=== PATIENT | male | born 1935 | race Caucasian/White ===

== ENCOUNTER 2017-07-28 06:39 | Day surgery (SDC) | payer MEDICARE, BC ==
[2017-07-28] MEDS ORDERED: LIDOCAINE 4% SOLUTION 50 ML BTL (08:41)
[2017-07-28] MEDS ORDERED: MIDAZOLAM 1 MG/ML 2 ML INJ ×2 (09:44)
[2017-07-28] MEDS ORDERED: FENTAnyl 50 MCG/ML VIAL (09:45)
== END 2017-07-28 10:31 | disposition home or self-care (01) ==
LOC: GIL 06:39
DX: Z12.11 Encounter for screening for malignant neoplasm of colon (principal); C16.0 Malignant neoplasm of cardia
CPT/HCPCS: 43239; 88305; 88312; 88313

== ENCOUNTER 2017-08-04 17:36 | Observation (INO) | payer MEDICARE, BC ==
[2017-08-04 22:49] LABS: ADD MAN DIFF? NO
[2017-08-04 22:51] LABS: WHITE BLOOD COUNT 7.8 10^3/ul (4.8-10.8)
[2017-08-04 22:51] LABS: BASOPHILS % 0.4 % (0.0-2.0); EOSINOPHILS # 0.2 10^3/ul (0.0-0.5); EOSINOPHILS % 2.6 % (0.0-7.0); HEMATOCRIT 37.7 % (42.0-52.0); HEMOGLOBIN 12.4 g/dl (14.0-18.0); LYMPHOCYTES # 2.3 10^3/ul (0.8-2.9); LYMPHOCYTES % 29.3 % (15.0-51.0); MEAN CORPUSCULAR HEMOGLOBIN 29.9 pg (29.0-33.0); MEAN CORPUSCULAR HGB CONC 32.9 g/dl (32.0-37.0); MEAN CORPUSCULAR VOLUME 90.8 fl (82.0-101.0); MEAN PLATELET VOLUME 8.8 fl (7.4-10.4); MONOCYTE # 0.6 10^3/ul (0.3-0.9); MONOCYTES % 7.4 % (0.0-11.0); NEUTROPHIL # 4.7 10^3/ul (1.6-7.5); PLATELET COUNT 305 10^3/UL (140-415); RED BLOOD COUNT 4.15 10^6/ul (4.70-6.10)
[2017-08-04 23:01] LABS: ADD UMIC NO; UR ASCORBIC ACID 20 mg/dL (NEGATIVE); UR BILIRUBIN (Dip) NEGATIVE (NEGATIVE); UR BLOOD (Dip) NEGATIVE (NEGATIVE); UR CLARITY SLIGHTLY CLOUDY (CLEAR); UR COLOR YELLOW (YELLOW); UR GLUCOSE (Dip) NEGATIVE (NEGATIVE); UR KETONES (Dip) NEGATIVE (NEGATIVE); UR LEUKOCYTE ESTERASE (Dip) NEGATIVE Leu/ul (NEGATIVE); UR MUCUS MANY /HPF (NONE SEEN); UR NITRITE (Dip) NEGATIVE (NEGATIVE); UR RBC 0 /HPF (0-5); UR SPECIFIC GRAVITY (Dip) 1.025 (1.003-1.030); UR SQUAMOUS EPITHELIAL CELL FEW /HPF (FEW); UR TOTAL PROTEIN (Dip) NEGATIVE (NEGATIVE); UR UROBILINOGEN (Dip) 1+ mg/dL (NEGATIVE); UR WBC 1 /HPF (0-5)
[2017-08-04 23:14] LABS: LACTIC ACID 1.1 mmol/L (0.5-2.0)
[2017-08-04 23:14] LABS: ALANINE AMINOTRANSFERASE 19 IU/L (13-69); ALBUMIN/GLOBULIN RATIO 1.25; ALKALINE PHOSPHATASE 69 IU/L (42-121); ANION GAP 15 (8-16); ASPARTATE AMINO TRANSFERASE 16 IU/L (15-46); BILIRUBIN,INDIRECT 0.3 mg/dl (0-1.1); BILIRUBIN,TOTAL 0.3 mg/dl (0.2-1.3); BLOOD UREA NITROGEN 15 mg/dl (7-20); CALCIUM 9.3 mg/dl (8.4-10.2); CARBON DIOXIDE 30 mmol/L (21-31); CHLORIDE 101 mmol/L (97-110); CREATININE 0.76 mg/dl (0.61-1.24); GLUCOSE 128 mg/dl (70-220); LIPASE 66 U/L (23-300); POTASSIUM 4.3 mmol/L (3.5-5.1); SODIUM 142 mmol/L (135-144); TOTAL PROTEIN 7.2 g/dl (6.1-8.1)
[2017-08-04] MEDS: SOD CHLORIDE 0.9% 1,000 ML IV (23:26)
[2017-08-04] MEDS: ONDANSETRON 4 MG INJ IV (23:26)
[2017-08-05] MEDS ORDERED: ALBUTEROL/IPRATROPIUM (NEB) 3 ML AMP HHN (02:00)
[2017-08-05] MEDS ORDERED: morphine 2 MG INJ IV (02:00)
[2017-08-05] MEDS ORDERED: ONDANSETRON 4 MG INJ IV (02:00)
[2017-08-05] MEDS ORDERED: NACL 0.9% 3 ML SYG IV (02:00)
[2017-08-05] MEDS: DEXTROSE 5%-0.45% NACL 1,000 ML IV ×2 (02:33→16:03)
[2017-08-05 06:13] LABS: ADD MAN DIFF? NO
[2017-08-05 06:21] LABS: WHITE BLOOD COUNT 5.2 10^3/ul (4.8-10.8)
[2017-08-05 06:21] LABS: BASOPHILS % 0.4 % (0.0-2.0); EOSINOPHILS # 0.2 10^3/ul (0.0-0.5); EOSINOPHILS % 4.1 % (0.0-7.0); HEMATOCRIT 26.4 % (42.0-52.0); HEMOGLOBIN 8.2 g/dl (14.0-18.0); LYMPHOCYTES # 1.6 10^3/ul (0.8-2.9); MEAN CORPUSCULAR HEMOGLOBIN 30.7 pg (29.0-33.0); MEAN CORPUSCULAR HGB CONC 31.1 g/dl (32.0-37.0); MEAN CORPUSCULAR VOLUME 98.9 fl (82.0-101.0); MEAN PLATELET VOLUME 9.6 fl (7.4-10.4); MONOCYTE # 0.4 10^3/ul (0.3-0.9); MONOCYTES % 8.3 % (0.0-11.0); NEUTROPHIL # 2.9 10^3/ul (1.6-7.5); NEUTROPHILS % 56.8 % (39.0-77.0); PLATELET COUNT 214 10^3/UL (140-415); RED BLOOD COUNT 2.67 10^6/ul (4.70-6.10); RED CELL DISTRIBUTION WIDTH 14.1 % (11.5-14.5)
[2017-08-05 08:39] LABS: ALANINE AMINOTRANSFERASE 19 IU/L (13-69); ALBUMIN 2.9 g/dl (3.3-4.9); ALBUMIN/GLOBULIN RATIO 1.11; ALKALINE PHOSPHATASE 50 IU/L (42-121); ANION GAP 11 (8-16); ASPARTATE AMINO TRANSFERASE 14 IU/L (15-46); BILIRUBIN,INDIRECT 0.3 mg/dl (0-1.1); BILIRUBIN,TOTAL 0.3 mg/dl (0.2-1.3); BLOOD UREA NITROGEN 13 mg/dl (7-20); CALCIUM 8.4 mg/dl (8.4-10.2); CARBON DIOXIDE 28 mmol/L (21-31); CHLORIDE 105 mmol/L (97-110); GLUCOSE 95 mg/dl (70-220); PHOSPHORUS 3.4 mg/dl (2.5-4.9); SODIUM 140 mmol/L (135-144); TOTAL PROTEIN 5.5 g/dl (6.1-8.1)
[2017-08-05] MEDS: FAMOTIDINE 20 MG INJ IV ×2 (09:21→21:55)
[2017-08-05] MEDS: SOD CHLORIDE 0.9% 100 ML (10:07)
[2017-08-05] MEDS: IOHEXOL 300MG/ML 150 ML BTL (10:07)
[2017-08-06] MEDS: DEXTROSE 5%-0.45% NACL 1,000 ML IV (05:41)
[2017-08-06 06:33] LABS: ADD MAN DIFF? NO
[2017-08-06 06:45] LABS: RETICULOCYTE RBC 3.61; WHITE BLOOD COUNT 6.4 10^3/ul (4.8-10.8)
[2017-08-06 06:45] LABS: BASOPHILS % 0.5 % (0.0-2.0); EOSINOPHILS # 0.3 10^3/ul (0.0-0.5); EOSINOPHILS % 3.9 % (0.0-7.0); HEMOGLOBIN 11.2 g/dl (14.0-18.0); LYMPHOCYTES # 1.7 10^3/ul (0.8-2.9); LYMPHOCYTES % 25.9 % (15.0-51.0); MEAN CORPUSCULAR HEMOGLOBIN 30.4 pg (29.0-33.0); MEAN CORPUSCULAR HGB CONC 33.9 g/dl (32.0-37.0); MEAN CORPUSCULAR VOLUME 89.4 fl (82.0-101.0); MEAN PLATELET VOLUME 9.2 fl (7.4-10.4); MONOCYTE # 0.5 10^3/ul (0.3-0.9); MONOCYTES % 8.2 % (0.0-11.0); NEUTROPHIL # 3.9 10^3/ul (1.6-7.5); NEUTROPHILS % 61.2 % (39.0-77.0); PLATELET COUNT 273 10^3/UL (140-415); RED BLOOD COUNT 3.69 10^6/ul (4.70-6.10); RED CELL DISTRIBUTION WIDTH 13.7 % (11.5-14.5); RETICULOCYTE COUNT # 0.036 X10^6 (0.020-0.110)
[2017-08-06 06:58] LABS: ANION GAP 14 (8-16); BLOOD UREA NITROGEN 8 mg/dl (7-20); CALCIUM 8.7 mg/dl (8.4-10.2); CARBON DIOXIDE 27 mmol/L (21-31); CHLORIDE 103 mmol/L (97-110); CREATININE 0.72 mg/dl (0.61-1.24); GLUCOSE 98 mg/dl (70-220); MAGNESIUM 1.9 mg/dl (1.7-2.5); PHOSPHORUS 3.8 mg/dl (2.5-4.9); POTASSIUM 3.8 mmol/L (3.5-5.1); SODIUM 140 mmol/L (135-144)
[2017-08-06 07:18] LABS: IRON 45 ug/dl (35-150)
[2017-08-06 07:19] LABS: LACTATE DEHYDROGENASE 388 IU/L (313-618)
[2017-08-06 07:19] LABS: URIC ACID 4.5 mg/dl (3.1-7.9)
[2017-08-06 07:27] LABS: % IRON SATURATION 17 % SAT (22-52); TOTAL IRON BINDING CAPACITY 259 ug/dl (241-421)
[2017-08-06 07:28] LABS: FERRITIN 81.6 ng/ml (11.1-264.0)
[2017-08-06 07:59] LABS: FOLATE 11.1 ng/ml (2.8-20.0)
[2017-08-06 08:09] LABS: ERYTHROCYTE SEDIMENTATION RATE 16 mm/Hr (0-20)
[2017-08-06] MEDS: FAMOTIDINE 20 MG INJ IV (08:38)
== END 2017-08-06 17:45 | disposition left against medical advice (07) ==
LOC: E/R 17:36 → PP2 08-05 00:05
DX: C16.9 Malignant neoplasm of stomach, unspecified (principal); R13.10 Dysphagia, unspecified; J44.9 Chronic obstructive pulmonary disease, unspecified; R63.4 Abnormal weight loss; Z68.1 Body mass index [BMI] 19.9 or less, adult; D63.8 Anemia in other chronic diseases classified elsewhere; N40.0 Benign prostatic hyperplasia without lower urinary tract symptoms; L98.9 Disorder of the skin and subcutaneous tissue, unspecified; H91.90 Unspecified hearing loss, unspecified ear; R42 Dizziness and giddiness; R07.9 Chest pain, unspecified; E86.0 Dehydration; M62.50 Muscle wasting and atrophy, not elsewhere classified, unspecified site; F17.200 Nicotine dependence, unspecified, uncomplicated
CPT/HCPCS: 36415; 80048; 80053; 81001; 81003; 82306; 82378; 82607; 82728; 82746; 83540; 83605; 83615; 83690; 83735; 84100; 84443; 84560; 85025; 85045; 85651; 87081; 96374; 99285-25; G0378

== ENCOUNTER 2017-08-07 00:40 | Inpatient (IN) | payer MEDICARE, BC ==
[2017-08-07] MEDS: ALBUTEROL/IPRATROPIUM (NEB) 3 ML AMP HHN ×4 (01:27→23:37)
[2017-08-07] MEDS: DEXTROSE 5%-0.9% NACL 1,000 ML IV ×2 (02:20→19:51)
[2017-08-07 02:23] LABS: ADD MAN DIFF? NO
[2017-08-07 02:24] LABS: WHITE BLOOD COUNT 6.3 10^3/ul (4.8-10.8)
[2017-08-07 02:24] LABS: BASOPHILS % 0.5 % (0.0-2.0); EOSINOPHILS # 0.1 10^3/ul (0.0-0.5); EOSINOPHILS % 1.1 % (0.0-7.0); HEMATOCRIT 35.1 % (42.0-52.0); HEMOGLOBIN 11.6 g/dl (14.0-18.0); LYMPHOCYTES # 1.1 10^3/ul (0.8-2.9); LYMPHOCYTES % 17.6 % (15.0-51.0); MEAN CORPUSCULAR HEMOGLOBIN 29.7 pg (29.0-33.0); MEAN PLATELET VOLUME 9.1 fl (7.4-10.4); MONOCYTE # 0.5 10^3/ul (0.3-0.9); MONOCYTES % 7.3 % (0.0-11.0); NEUTROPHIL # 4.6 10^3/ul (1.6-7.5); NEUTROPHILS % 73.2 % (39.0-77.0); PLATELET COUNT 300 10^3/UL (140-415); RED CELL DISTRIBUTION WIDTH 13.5 % (11.5-14.5)
[2017-08-07 02:45] LABS: ALANINE AMINOTRANSFERASE 12 IU/L (13-69); ALBUMIN 3.6 g/dl (3.3-4.9); ALKALINE PHOSPHATASE 56 IU/L (42-121); ANION GAP 16 (8-16); ASPARTATE AMINO TRANSFERASE 27 IU/L (15-46); BILIRUBIN,INDIRECT 0.6 mg/dl (0-1.1); BILIRUBIN,TOTAL 0.6 mg/dl (0.2-1.3); BLOOD UREA NITROGEN 9 mg/dl (7-20); CALCIUM 8.9 mg/dl (8.4-10.2); CARBON DIOXIDE 26 mmol/L (21-31); CHLORIDE 107 mmol/L (97-110); CREATININE 0.71 mg/dl (0.61-1.24); GLUCOSE 88 mg/dl (70-220); LIPASE 39 U/L (23-300); POTASSIUM 4.6 mmol/L (3.5-5.1); SODIUM 144 mmol/L (135-144); TOTAL PROTEIN 7.2 g/dl (6.1-8.1)
[2017-08-07] MEDS: PANTOPRAZOLE 40 MG INJ IV (05:50)
[2017-08-07] MEDS: LIDOCAINE 1% (MPF) 5 ML VIAL SC (16:10)
[2017-08-07] MEDS: TPN 1,000 ML IV (20:22)
[2017-08-07] MEDS: ACCU-CHEK XX (21:00)
[2017-08-08] MEDS: ACCU-CHEK XX ×6 (01:00→21:03)
[2017-08-08] MEDS: PANTOPRAZOLE 40 MG INJ IV (05:22)
[2017-08-08 06:38] LABS: ANION GAP 12 (8-16); BLOOD UREA NITROGEN 9 mg/dl (7-20); CALCIUM 8.4 mg/dl (8.4-10.2); CARBON DIOXIDE 27 mmol/L (21-31); CHLORIDE 106 mmol/L (97-110); CREATININE 0.71 mg/dl (0.61-1.24); GLUCOSE 104 mg/dl (70-220); MAGNESIUM 1.9 mg/dl (1.7-2.5); PHOSPHORUS 3.8 mg/dl (2.5-4.9); POTASSIUM 3.6 mmol/L (3.5-5.1); SODIUM 141 mmol/L (135-144); TRIGLYCERIDES 84 mg/dl (0-149)
[2017-08-08 06:45] LABS: PREALBUMIN 11.8 mg/dl (17.6-36.0)
[2017-08-08] MEDS: ALBUTEROL/IPRATROPIUM (NEB) 3 ML AMP HHN ×2 (08:00→16:00)
[2017-08-08] MEDS: TPN 1,000 ML IV (21:03)
[2017-08-09] MEDS: ALBUTEROL/IPRATROPIUM (NEB) 3 ML AMP HHN ×3 (00:03→16:00)
[2017-08-09] MEDS: ACCU-CHEK XX ×5 (01:48→17:31)
[2017-08-09] MEDS: PANTOPRAZOLE 40 MG INJ IV (05:31)
[2017-08-09 06:38] LABS: ANION GAP 14 (8-16); BLOOD UREA NITROGEN 14 mg/dl (7-20); CALCIUM 8.6 mg/dl (8.4-10.2); CARBON DIOXIDE 29 mmol/L (21-31); CHLORIDE 101 mmol/L (97-110); CREATININE 0.71 mg/dl (0.61-1.24); GLUCOSE 102 mg/dl (70-220); POTASSIUM 3.8 mmol/L (3.5-5.1); SODIUM 140 mmol/L (135-144)
[2017-08-09] MEDS: TPN 1,000 ML IV (22:00)
[2017-08-10] MEDS: PANTOPRAZOLE 40 MG INJ IV (05:26)
[2017-08-10] MEDS: ACCU-CHEK XX ×4 (05:33→18:02)
[2017-08-10 05:48] LABS: ADD MAN DIFF? NO
[2017-08-10 05:54] LABS: BASOPHILS % 0.5 % (0.0-2.0); EOSINOPHILS # 0.4 10^3/ul (0.0-0.5); EOSINOPHILS % 5.7 % (0.0-7.0); HEMATOCRIT 30.6 % (42.0-52.0); HEMOGLOBIN 10.4 g/dl (14.0-18.0); LYMPHOCYTES # 1.7 10^3/ul (0.8-2.9); LYMPHOCYTES % 25.4 % (15.0-51.0); MEAN CORPUSCULAR HEMOGLOBIN 30.5 pg (29.0-33.0); MEAN CORPUSCULAR VOLUME 89.7 fl (82.0-101.0); MEAN PLATELET VOLUME 9.6 fl (7.4-10.4); MONOCYTE # 0.6 10^3/ul (0.3-0.9); MONOCYTES % 8.4 % (0.0-11.0); NEUTROPHIL # 3.9 10^3/ul (1.6-7.5); NEUTROPHILS % 59.7 % (39.0-77.0); PLATELET COUNT 232 10^3/UL (140-415); RED BLOOD COUNT 3.41 10^6/ul (4.70-6.10)
[2017-08-10 05:54] LABS: WHITE BLOOD COUNT 6.5 10^3/ul (4.8-10.8)
[2017-08-10 06:12] LABS: INR 1.06; PROTIME 13.9 Sec (11.9-14.9); PT RATIO 1.1
[2017-08-10 06:13] LABS: PARTIAL THROMBOPLASTIN TIME 32.6 Sec (25.0-35.0)
[2017-08-10 06:41] LABS: ANION GAP 14 (8-16); BLOOD UREA NITROGEN 18 mg/dl (7-20); CALCIUM 8.8 mg/dl (8.4-10.2); CARBON DIOXIDE 29 mmol/L (21-31); CHLORIDE 100 mmol/L (97-110); CREATININE 0.71 mg/dl (0.61-1.24); GLUCOSE 98 mg/dl (70-220); POTASSIUM 4.6 mmol/L (3.5-5.1); SODIUM 138 mmol/L (135-144)
[2017-08-10] MEDS: ALBUTEROL/IPRATROPIUM (NEB) 3 ML AMP HHN ×4 (08:00→23:19)
[2017-08-10] MEDS ORDERED: PROPOFOL 20 ML ×2 (11:49→12:09)
[2017-08-10] MEDS ORDERED: ONDANSETRON 4 MG INJ (12:01)
[2017-08-10] MEDS ORDERED: PHENYLephrine (100 MCG/ML) 5ML SYG (12:01)
[2017-08-10] MEDS ORDERED: DEXAMETHASONE 4 MG/ML 1 ML INJ (12:01)
[2017-08-10] MEDS ORDERED: METOCLOPRAMIDE 10 MG INJ (12:01)
[2017-08-10] MEDS ORDERED: METOCLOPRAMIDE 10 MG INJ IV (12:30)
[2017-08-10] MEDS ORDERED: LABETALOL HCL 20MG INJ IV (12:30)
[2017-08-10] MEDS ORDERED: ALBUMIN HUMAN 5% 250 ML IV (12:30)
[2017-08-10] MEDS ORDERED: EPHEDrine SULFATE 50 MG/5 ML SYG IV (12:30)
[2017-08-10] MEDS ORDERED: FENTAnyl 50 MCG/ML VIAL IV ×2 (12:30)
[2017-08-10] MEDS ORDERED: hydrALAzine 20 MG INJ IV (12:30)
[2017-08-10] MEDS ORDERED: HYDROmorphONE 1 MG/5 ML IV SYRINGE IV ×2 (12:30)
[2017-08-10] MEDS ORDERED: ONDANSETRON 4 MG INJ IV (12:30)
[2017-08-11] MEDS: TPN 1,000 ML IV (00:18)
[2017-08-11] MEDS: ACCU-CHEK XX ×3 (06:00→12:07)
[2017-08-11] MEDS: PANTOPRAZOLE 40 MG INJ IV (06:39)
[2017-08-11] MEDS: ALBUTEROL/IPRATROPIUM (NEB) 3 ML AMP HHN ×2 (09:02→16:00)
== END 2017-08-11 16:20 | disposition home or self-care (01) | DRG 374 ==
LOC: E/R 00:40 → MS1 01:19
PROC: 0D738DZ Dilation of Lower Esophagus with Intraluminal Device, Via Natural or Artificial Opening Endoscopic (ICD-10-PCS; principal; 2017-08-10 11:30)
DX: C16.0 Malignant neoplasm of cardia (principal); E43 Unspecified severe protein-calorie malnutrition; Z68.1 Body mass index [BMI] 19.9 or less, adult; E46 Unspecified protein-calorie malnutrition; J44.9 Chronic obstructive pulmonary disease, unspecified; E86.0 Dehydration; D63.8 Anemia in other chronic diseases classified elsewhere; D63.0 Anemia in neoplastic disease; R13.10 Dysphagia, unspecified; F32.9 Major depressive disorder, single episode, unspecified; N40.0 Benign prostatic hyperplasia without lower urinary tract symptoms; F17.210 Nicotine dependence, cigarettes, uncomplicated; M62.50 Muscle wasting and atrophy, not elsewhere classified, unspecified site; H91.90 Unspecified hearing loss, unspecified ear; Z91.19 Patient's noncompliance with other medical treatment and regimen
CPT/HCPCS: 36415; 36569; 71045; 76937; 80048; 80053; 82962; 83690; 83735; 84100; 84134; 84478; 85025; 85610; 85730; 93005; 94640; 94664; 96361; 96374; 99285-25

== ENCOUNTER 2018-07-28 09:20 | Inpatient (IN) | payer MEDICARE, BC ==
[2018-07-28] MEDS: SOD CHLORIDE 0.9% 1,000 ML IV ×3 (10:22→19:01)
[2018-07-28] MEDS ORDERED: ONDANSETRON 4 MG INJ IV (15:30)
[2018-07-28] MEDS ORDERED: ACETAMINOPHEN 325 MG TAB PO (15:30)
[2018-07-28] MEDS ORDERED: DOCUSATE SODIUM 100 MG CAP PO (15:30)
[2018-07-28] MEDS ORDERED: morphine 2 MG INJ IV (15:30)
[2018-07-28] MEDS ORDERED: ZOLPIDEM 5 MG TAB PO (15:30)
[2018-07-28] MEDS ORDERED: HYDROCODONE/APAP (5/325) TAB PO (15:30)
[2018-07-28] MEDS ORDERED: NACL 0.9% 3 ML SYG IV (15:30)
[2018-07-29] MEDS: SOD CHLORIDE 0.9% 1,000 ML IV ×3 (02:27→09:40)
[2018-07-29 06:20] LABS: ADD MAN DIFF? NO
[2018-07-29 06:23] LABS: BASOPHILS % 0.6 % (0.0-2.0); EOSINOPHILS # 0.1 10^3/ul (0.0-0.5); HEMATOCRIT 30.4 % (42.0-52.0); HEMOGLOBIN 10.1 g/dl (14.0-18.0); LYMPHOCYTES # 1.6 10^3/ul (0.8-2.9); LYMPHOCYTES % 32.7 % (15.0-51.0); MEAN CORPUSCULAR HEMOGLOBIN 31.7 pg (29.0-33.0); MEAN CORPUSCULAR HGB CONC 33.2 g/dl (32.0-37.0); MEAN CORPUSCULAR VOLUME 95.3 fl (82.0-101.0); MEAN PLATELET VOLUME 8.9 fl (7.4-10.4); MONOCYTE # 0.5 10^3/ul (0.3-0.9); MONOCYTES % 10.2 % (0.0-11.0); NEUTROPHIL # 2.8 10^3/ul (1.6-7.5); NEUTROPHILS % 55.1 % (39.0-77.0); PLATELET COUNT 208 10^3/UL (140-415); RED BLOOD COUNT 3.19 10^6/ul (4.70-6.10); RED CELL DISTRIBUTION WIDTH 15.8 % (11.5-14.5)
[2018-07-29 07:02] LABS: ANION GAP 8 (5-13); BLOOD UREA NITROGEN 10 mg/dl (7-20); CALCIUM 8.8 mg/dl (8.4-10.2); CARBON DIOXIDE 26 mmol/L (21-31); CHLORIDE 111 mmol/L (97-110); CREATININE 0.81 mg/dl (0.61-1.24); GLUCOSE 93 mg/dl (70-220); MAGNESIUM 1.6 mg/dl (1.7-2.5); PHOSPHORUS 3.9 mg/dl (2.5-4.9); POTASSIUM 3.9 mmol/L (3.5-5.1); SODIUM 145 mmol/L (135-144)
[2018-07-29 07:21] LABS: HEMOGLOBIN A1C 4.9 % (0-5.9)
[2018-07-29] MEDS: VITAMIN B COMPLEX/VIT C CAP PO (08:52)
[2018-07-29] MEDS: PANTOPRAZOLE (EC) 40 MG TAB PO (08:52)
[2018-07-29] MEDS: ASCORBIC ACID 500 MG TAB PO (08:52)
[2018-07-29] MEDS: MAGNESIUM OXIDE 400 MG TAB PO (11:21)
== END 2018-07-29 15:25 | disposition home or self-care (01) | DRG 641 ==
LOC: E/R 09:20 → TEL 09:58
DX: E86.0 Dehydration (principal); C15.5 Malignant neoplasm of lower third of esophagus; R55 Syncope and collapse; I10 Essential (primary) hypertension; I25.10 Atherosclerotic heart disease of native coronary artery without angina pectoris; E78.5 Hyperlipidemia, unspecified; D64.9 Anemia, unspecified; K29.70 Gastritis, unspecified, without bleeding; Z87.891 Personal history of nicotine dependence
CPT/HCPCS: 80048; 83036; 83735; 84100; 85025; 97161; 99285-25